=== PATIENT | female | born 1945 | race Caucasian/White ===

== ENCOUNTER 2020-04-15 14:48 | Inpatient (IN) ==
[2020-04-15] MEDS ORDERED: NS 0.9% 1000 ml BAG 1,000 ML IV ONE (15:04)
[2020-04-15 15:17] LABS: ABS Lymphocytes 0.3 10^3/ul (1.0-4.8); ABS Monocytes 0.5 10^3/ul (0-0.8); ABS Neutrophils 4.1 10^3/ul (1.5-7.7); Eosinophil % 0.6 %; Hematocrit 36 % (35-47); Hemoglobin 12.1 g/dL (12.0-16.0); Lymphocyte % 5.1 %; Mean Corpuscular HGB Conc 34 g/dL (31-36); Mean Corpuscular Hemoglobin 30 pg (27-31); Mean Corpuscular Volume 88 fL (80-97); Mean Platelet Volume 9.1 fL (7.4-10.4); Platelet Count 208 10^3/uL (150-450); Red Blood Count 4.05 10^6 /uL (3.70-4.87); Red Cell Distribution Width 13 % (10-15); White Blood Count 4.9 10^3/uL (3.5-10.8)
[2020-04-15 15:30] LABS: INR 1.11 (0.82-1.09)
[2020-04-15 16:05] LABS: Albumin 3.5 g/dL (3.2-5.2); Albumin/Globulin Ratio 1.4 (1-3); BUN/Creatinine Ratio 7.4 (8-20); C Reactive Protein 17.52 mg/L (<8.01); Calcium 9.2 mg/dL (8.6-10.3); EGFR African American 83.4 (>60); EGFR Non-African American 68.9 (>60); Globulin 2.5 g/dL (2-4); Total Bilirubin 0.7 mg/dL (0.2-1.0)
[2020-04-15] MEDS ORDERED: KCL 20 MEQ/100 ML IVPREMIX 20 MEQ/100 ML BAG IV ONE (16:20)
[2020-04-15] MEDS ORDERED: Iohexol 300 (CONTRAST) 10 ML SDV IV ONE (16:26)
[2020-04-15] MEDS ORDERED: Potassium Chlor 20 meq TAB.ER PO ONE (17:51)
[2020-04-15] MEDS ORDERED: Senna TAB 8.6 mg TAB PO PRN (18:51)
[2020-04-15] MEDS: HYDROmorphone 0.5 MG/0.5 ML SYRINGE IV SLOW PU PRN ×2 (19:20→23:20)
[2020-04-15] MEDS: Enoxaparin 40 MG/0.4 ML SYR SUBCUT SCH (22:05)
[2020-04-15] MEDS: NS 0.9% w/ 40 Meq KCL 1000 ML 1,000 ML IV SCH (22:35)
[2020-04-16] MEDS: HYDROmorphone 0.5 MG/0.5 ML SYRINGE IV SLOW PU PRN ×4 (03:40→15:50)
[2020-04-16] MEDS: NS 0.9% w/ 40 Meq KCL 1000 ML 1,000 ML IV SCH ×2 (06:15→16:01)
[2020-04-16 08:09] LABS: ABS Eosinophils 0.1 10^3/ul (0-0.6); ABS Lymphocytes 0.2 10^3/ul (1.0-4.8); ABS Monocytes 0.4 10^3/ul (0-0.8); ABS Neutrophils 2.3 10^3/ul (1.5-7.7); Eosinophil % 2.7 %; Hematocrit 32 % (35-47); Hemoglobin 10.6 g/dL (12.0-16.0); Lymphocyte % 5.2 %; Mean Corpuscular HGB Conc 33 g/dL (31-36); Mean Corpuscular Hemoglobin 29 pg (27-31); Mean Corpuscular Volume 88 fL (80-97); Mean Platelet Volume 9.7 fL (7.4-10.4); Nucleated Red Blood Cells % 0.1; Platelet Count 144 10^3/uL (150-450); Red Blood Count 3.62 10^6 /uL (3.70-4.87); Red Cell Distribution Width 13 % (10-15)
[2020-04-16 08:24] LABS: Albumin 2.9 g/dL (3.2-5.2); Albumin/Globulin Ratio 1.4 (1-3); BUN/Creatinine Ratio 6.8 (8-20); Calcium 8.7 mg/dL (8.6-10.3); EGFR African American 120.2 (>60); EGFR Non-African American 99.4 (>60); Globulin 2.1 g/dL (2-4); Potassium 4.1 mmol/L (3.5-5.0); Total Bilirubin 0.4 mg/dL (0.2-1.0)
[2020-04-16] MEDS ORDERED: Lorazepam PYXIS KEY PRN (08:50)
[2020-04-16] MEDS ORDERED: fentaNYL 100 mcg/2 ml 50 MCG/ML VIAL ONE (15:40)
[2020-04-16] MEDS: LORazepam 2 mg VIAL 1 ml IV PUSH PRN (15:50)
[2020-04-16] MEDS: Enoxaparin 40 MG/0.4 ML SYR SUBCUT SCH (21:28)
[2020-04-17] MEDS: LORazepam 2 mg VIAL 1 ml IV PUSH PRN (00:37)
[2020-04-17] MEDS: NS 0.9% w/ 40 Meq KCL 1000 ML 1,000 ML IV SCH ×2 (04:48→21:27)
[2020-04-17] MEDS: Enoxaparin 40 MG/0.4 ML SYR SUBCUT SCH (19:59)
[2020-04-18 11:58] VITALS: BP 112/54
== END 2020-04-18 13:15 | disposition home health service (06) | DRG 948 ==
LOC: ED 14:48 → MED 20:05
PROVIDERS: ADMIT Internal Medicine Hematology & Oncology; ATTEND Internal Medicine Hematology & Oncology